=== PATIENT | female | born 1990 | race Caucasian/White ===

== ENCOUNTER 2019-03-23 00:54 | Emergency (ER) | payer OTHER ==
[~2019-03-23] VITALS: Ht 167.6 cm; Wt 64.9 kg
--- NOTE | 2019-03-23 01:35 | NUR ---
PT CAME TO ER W/ MOM C/O ITCHINESS ALL OVER BODY. PT STATES SHE JUST CAME BACK FROM [place] AND STAYED AT HER NEW APARTMENT AND HAD ITCHINESS AND HIVES BREAKING OUT OVER HER BODY. AAOX4. NO SOB. BREATHING EVENLY AND UNLABORED. AIRWAY IS OPEN. MOTHER AT BEDSIDE. CONNECTED TO MONITOR.
[2019-03-23] MEDS ORDERED: predniSONE 20 MG TABLET ONE (01:54)
[2019-03-23] MEDS ORDERED: EPINEPHRINE (1:10,000) SYRINGE 1 MG/10 ML DISP.SYRIN ONE (01:55)
[2019-03-23] MEDS ORDERED: EPINEPHRINE (1:1000) 1 MG/ML AMPUL ONE (01:59)
[2019-03-23] MEDS: predniSONE 10 MG TABLET PO ONE (02:08)
[2019-03-23] MEDS: EPINEPHRINE (1:1000) MDV 30 MG/30ML VIAL SUBCUT ONE (02:11)
--- NOTE | 2019-03-23 02:59 | NUR ---
dr. galindo at the bed side for reeval
--- NOTE | 2019-03-23 03:06 | NUR ---
Patient discharged to home in stable condition. Written and verbal after care instructions given. Patient verbalizes understanding of instruction.
[2019-03-23 03:07] VITALS: BP 101/58
--- NOTE | 2019-03-23 03:07 | NUR ---
PATIENT GIVEN PRESCRIPTION AND VERBALIZES UNDERSTANDING.
== END 2019-03-23 03:08 | disposition home or self-care (01) ==
LOC: ER 00:56
DX: L50.9 Urticaria, unspecified (principal); J45.909 Unspecified asthma, uncomplicated; Z60.2 Problems related to living alone
CPT/HCPCS: 96372; 99283; J0171 ×2; J7512